=== PATIENT | male | born 1960 | race Caucasian/White ===

== ENCOUNTER → 2018-12-25 | Outpatient (CLI) | payer OTHER ==
[~2018-12-25] MED LIST: ALBU90OI6 INH; AMIT25 PO; ASPI81CH PO; ASPI81EC PO; Aspir 8181 MG PO; CLOM50A PO; ENAL2.5 PO; HYDMOR2 PO; HYDR1TAB94 PO; Humalog100 UNIT/1; INSLI100I SC; INSULANI SC; INSULANPEN; KETO10 PO; LOVA20 PO; LOVA40 PO; Lantus100 UNIT/1 SC; METF500 PO; Naprosyn500 MG PO; OXYC10ER PO; OXYC10TA19; Prednisone20 MG PO; SILD25T PO; SILD50TA PO; WARF5; Zithromax250 MG PO
== END | disposition home or self-care (01) ==
LOC: LAB SHORT 10:03 → LAB EV 10:03
DX: J02.9 Acute pharyngitis, unspecified (principal)
CPT/HCPCS: 87081

== ENCOUNTER 2021-10-18 09:51 | Inpatient (IN) | payer OTHER ==
[~2021-10-18] VITALS: Ht 177.8 cm; Wt 98.3 kg
[~2021-10-18 09:51] MED LIST changes: +HUMALOG100 UNIT/1 SC; -INSLI100I SC
[2021-10-18 10:29] LABS: BASOPHILS ABSOLUTE AUTO 0.06 K/mm3 (0.00-0.23); BASOPHILS PERCENT AUTO 1 % (0-2); EOSINOPHILS ABSOLUTE AUTO 0.22 K/mm3 (0.00-0.68); EOSINOPHILS PERCENT AUTO 3 % (0-6); Hematocrit 42.6 % (37.0-53.0); Hemoglobin 13.9 g/dL (13.5-17.5); IMMATURE GRAN ABSOLUTE AUTO 0.01 K/mm3 (0.00-0.10); IMMATURE GRAN PERCENT AUTO 0 % (0-1); LYMPHOCYTES ABSOLUTE AUTO 0.86 K/mm3 (0.84-5.20); LYMPHOCYTES PERCENT AUTO 13 % (21-46); MONOCYTES ABSOLUTE AUTO 0.46 K/mm3 (0.16-1.47); MONOCYTES PERCENT AUTO 7 % (4-13); Mean Corpuscular HGB 28.7 pg (26.0-34.0); Mean Corpuscular HGB Conc 32.6 g/dL (31.5-36.5); Mean Corpuscular Volume 88 fL (80-100); Mean Platelet Volume 10.6 fL (9.1-12.4); NEUTROPHILS ABSOLUTE AUTO 4.91 K/mm3 (1.96-9.15); NEUTROPHILS PERCENT AUTO 75 % (41-73); Platelet Count 219 K/mm3 (150-400); RDW Standard Deviation 42.4 fL (35.1-46.3); Red Blood Cell Count 4.84 M/mm3 (4.30-5.90); White Blood Cell Count 6.52 K/mm3 (4.00-11.30)
[2021-10-18 10:39] LABS: Alanine Aminotransfer (ALT/SGP 43 U/L (12-78); Albumin, Blood 3.7 g/dL (3.4-5.0); Albumin/Globulin Ratio 1.1 (0.8-1.8); Alk Phos 79 U/L (50-136); Anion Gap 5 mmol/L (6-16); Aspartate Aminotrans (AST/SGOT 31 U/L (12-37); Blood Urea Nitrogen 17 mg/dL (8-24); CO2, Blood 28 mmol/L (21-32); Calcium, Blood 8.5 mg/dL (8.5-10.1); Chloride, Blood 107 mmol/L (98-108); Creatinine, Blood 0.81 mg/dL (0.60-1.20); Globulin, Blood 3.3 g/dL (2.2-4.0); Glomerular Filtration Rate >60 (60-); Glucose, Blood 126 mg/dL (70-99); Potassium, Blood 4.1 mmol/L (3.5-5.5); Sodium, Blood 140 mmol/L (136-145)
[2021-10-18 11:17] LABS: Influenza A, PCR NEGATIVE (NEGATIVE); Influenza B, PCR NEGATIVE (NEGATIVE); Resp Syncytial Virus, PCR NEGATIVE (NEGATIVE); SARS-Cov-2 (COVID-19) PCR, MMC NEGATIVE (NEGATIVE)
--- NOTE | 2021-10-18 15:23 | NUR ---
PT INSULIN DOSE VERIFIED WITH PT. PT REPORTED HE TAKES LANTUS 25 UNITS AT BEDTIME AND TAKES SHORT ACTING INSULIN 3-6 UNITS WITH MEALS DEPENDING ON WHAT HE EATS. PT REPORTS HE DOES NOT USE A SCALE. PT ALSO REPORTED HE HAS BEEN WAKING AT 1 AM IN THE NIGHT DUE TO LOW BLOOD SUGARS WITH RESULTS IN THE 50'S. DR. SRIVASTAVA NOTIFIED OF PT HOME INSULIN DOSE AND REPORTED LOW BLOOD SUGARS. DR. SRIVASTAVA GAVE ORDER TO CHANGE GLARGINE DOSE TO 10 UNITS AT BEDTIME.
--- NOTE | 2021-10-18 17:49 | NUR ---
SHIFT SUMMARY: PT TRANSFERRED FROM MEDICAL FLOOR. HE HAS BEEN EXPERIENCING CP AND SOB FOR THE LAST 6 MONTHS AND RECEIVED A NEW DX OF CHF TODAY. EF IS 25-30%. THE PT NOTES THAT HE HAS NOTICED SOME INCREASED SWELLING IN HIS ANKLES RECENTLY. PT IS INDEPENDENT IN THE ROOM. HE IS ON TELE AT NSR. IV IN LT AC. PT IS ALERT AND ORIENTED X4. BED IN LOW POSITION. CALL LIGHT IN REACH. WILL REPORT TO NIGHT NURSE.
--- NOTE | 2021-10-18 18:10 | NUR ---
TELE CALLED AND REPORTED PT HAD RUN OF VTACH 12 BEATS. ON ASSESSMENT PT REPORTS MILD CP MIDSTERNUM HE HAS HAD ALL DAY, DESCRIBED DULL ACHE THAT DOES NOT RADIATE. PT REPORTS THE CP HAS BEEN BETTER THAN WHAT IT WAS WHEN HE ARRIVED THIS AM. PT HAD JUST FINISHED EATING 100% OF DINNER AND HAD VISITOR IN ROOM. NO S/S OF DISTRESS, NO SOB. VITALS 137/84, HR 74, T 97.5, RR 16, O2 SATS 97% ON RA. NOTIFIED DR. SRIVASTAVA VIA CELL. LEFT DETAILED MESSAGE. AWAITING RETURN CALL.
--- NOTE | 2021-10-19 04:32 | NUR ---
SHIFT SUMMARY ADMITTED FOR CHF, NEW DIAGNOSIS. FULL CODE. PLAN IS TO MONITOR CARDIAC LABS AND TRENDS. INDEPENDENT IN ROOM, A&O X4. NPO SINCE MIDNIGHT. AC CHEMSTICKS. ADA/2 G LOW NA+ DIET.
[2021-10-19 05:38] LABS: Anion Gap 7 mmol/L (6-16); Blood Urea Nitrogen 14 mg/dL (8-24); Bun/Creatinine Ratio 16.8 (12.0-20.0); CHOL/HDL RATIO 2.6; CO2, Blood 26 mmol/L (21-32); Calcium, Blood 8.3 mg/dL (8.5-10.1); Chloride, Blood 109 mmol/L (98-108); Cholesterol 132 mg/dL (50-200); Creatinine, Blood 0.83 mg/dL (0.60-1.20); Glomerular Filtration Rate >60 (60-); Glucose, Blood 61 mg/dL (70-99); HDL Cholesterol 50 mg/dL (>39); LDL/HDL RATIO 1.5; Low Density Lipoprotein Chol 73 mg/dL (0-110); Magnesium, Blood 2.1 mg/dL (1.6-2.4); Potassium, Blood 3.8 mmol/L (3.5-5.5); Sodium, Blood 142 mmol/L (136-145); Triglycerides 45 mg/dL (30-160); Very Low Density Lipoprot Chol 9 mg/dL (6-32)
[2021-10-19 09:48] LABS: Hematocrit 43.4 % (37.0-53.0); Hemoglobin 14.1 g/dL (13.5-17.5); Mean Platelet Volume 10.2 fL (9.1-12.4); Platelet Count 204 K/mm3 (150-400)
[2021-10-19 10:03] LABS: Anti-Xa UFH, PHA Monitoring <0.10 IU/mL; International Normalized Ratio 1.04; Prothrombin Time Results 10.9 Sec (9.7-11.5)
--- NOTE | 2021-10-19 15:13 | NUR ---
TO ROOM WORKER. PT TO ROOM WORKER VIA W/C.
--- NOTE | 2021-10-19 16:54 | NUR ---
Update Pt arrived from [facility] after being on medical floor earlier today. He had an angio with right radial access with no stents. Dr Sheffield is at the bedside discussing the plan and he will need further intervention at a higher level of care. Per Dr Sheffield the pt will stay another night for monitoring and then they will work on the plan more tomorrow. The pt remains on room air with no SOB and sats in the high 90's. He is in NSR @ 67 and denies chest pain. He has the right radial site with TR band in place. Heparin is DCD per Dr Sheffield and he can eat a heart healthy diet. The is at the bedside and she has been updated. He is able to make his needs known and has his call light in reach.
[2021-10-20 04:12] LABS: BASOPHILS ABSOLUTE AUTO 0.08 K/mm3 (0.00-0.23); BASOPHILS PERCENT AUTO 1 % (0-2); EOSINOPHILS ABSOLUTE AUTO 0.24 K/mm3 (0.00-0.68); EOSINOPHILS PERCENT AUTO 4 % (0-6); Hematocrit 40.5 % (37.0-53.0); Hemoglobin 13.3 g/dL (13.5-17.5); IMMATURE GRAN ABSOLUTE AUTO 0.01 K/mm3 (0.00-0.10); IMMATURE GRAN PERCENT AUTO 0 % (0-1); LYMPHOCYTES ABSOLUTE AUTO 1.57 K/mm3 (0.84-5.20); LYMPHOCYTES PERCENT AUTO 25 % (21-46); MONOCYTES ABSOLUTE AUTO 0.62 K/mm3 (0.16-1.47); MONOCYTES PERCENT AUTO 10 % (4-13); Mean Corpuscular HGB 28.9 pg (26.0-34.0); Mean Corpuscular HGB Conc 32.8 g/dL (31.5-36.5); Mean Corpuscular Volume 88 fL (80-100); Mean Platelet Volume 10.6 fL (9.1-12.4); NEUTROPHILS ABSOLUTE AUTO 3.79 K/mm3 (1.96-9.15); NEUTROPHILS PERCENT AUTO 60 % (41-73); Platelet Count 189 K/mm3 (150-400); RDW Coefficient Variation 12.7 % (11.7-14.2); RDW Standard Deviation 41.4 fL (35.1-46.3); Red Blood Cell Count 4.61 M/mm3 (4.30-5.90); White Blood Cell Count 6.31 K/mm3 (4.00-11.30)
[2021-10-20 04:32] LABS: Anion Gap 5 mmol/L (6-16); Blood Urea Nitrogen 22 mg/dL (8-24); Bun/Creatinine Ratio 27.8 (12.0-20.0); CO2, Blood 27 mmol/L (21-32); Calcium, Blood 8.5 mg/dL (8.5-10.1); Chloride, Blood 105 mmol/L (98-108); Creatinine, Blood 0.79 mg/dL (0.60-1.20); Glomerular Filtration Rate >60 (60-); Glucose, Blood 229 mg/dL (70-99); Potassium, Blood 4.1 mmol/L (3.5-5.5); Sodium, Blood 137 mmol/L (136-145)
--- NOTE | 2021-10-20 06:26 | NUR ---
SHIFT SUMMARY Assumed care of pt at 1900. A/Ox4, independent in room. No reports of pain, CP/pressure. He reports being slightly sore midsternum but reports it not to be really painful. No SOB. NSR on monitor avg 70's. 95% on RA. LS clear on top and exp wheeze at bases bl. Reports small chronic cough producing minimal amounts of clear/white sputum. BLE 1+ pitting edema. TR band removed 0130, no complications/hematoma/redness to site. Will report to [facility].
[2021-10-20] MEDS ORDERED: ACET325 PO (12:27)
[2021-10-20] MEDS ORDERED: FURO40 PO (12:29)
[2021-10-20] MEDS ORDERED: METO25ER PO (12:31)
[2021-10-20] MEDS ORDERED: LOSA25 PO (12:31)
[2021-10-20] MEDS ORDERED: NITR.4SL SL (12:34)
--- NOTE | 2021-10-20 12:50 | NUR ---
PT DISCHARGED HOME WITH ALL BELONGINGS. DISCHARGE TEACHING REVIEWED INCLUDING MEDICATION LIST, FOLLOW UP APPOINTMENTS, RADIAL SITE CARE AND EDUCATION MATERIAL. PT VERBALIZES UNDERSTANDING, NO QUESTIONS OR CONCERNS AT THIS TIME. IV REMOVED WNL, CATHETER INTACT. PT'S WILL BE DRIVING HIM HOME.
== END 2021-10-20 13:20 | disposition home or self-care (01) | DRG 286 ==
LOC: ER 09:51 → MEDS 09:52 → PCU 10-19 16:04
PROVIDERS: Emergency Medicine; Nurse Practitioner Acute Care; ADMIT Internal Medicine
PROC: 4A023N8 Measurement of Cardiac Sampling and Pressure, Bilateral, Percutaneous Approach (ICD-10-PCS; principal; 2021-10-19)
PROC: B2111ZZ Fluoroscopy of Multiple Coronary Arteries using Low Osmolar Contrast (ICD-10-PCS; 2021-10-19)
DX: I11.0 Hypertensive heart disease with heart failure (principal); I50.21 Acute systolic (congestive) heart failure; I47.2 Ventricular tachycardia; I42.9 Cardiomyopathy, unspecified; I25.10 Atherosclerotic heart disease of native coronary artery without angina pectoris; I45.81 Long QT syndrome; E11.40 Type 2 diabetes mellitus with diabetic neuropathy, unspecified; Z96.651 Presence of right artificial knee joint; Z20.822 Contact with and (suspected) exposure to COVID-19; E78.5 Hyperlipidemia, unspecified; R06.00 Dyspnea, unspecified; R07.9 Chest pain, unspecified; E66.01 Morbid (severe) obesity due to excess calories; Z79.4 Long term (current) use of insulin; Z88.8 Allergy status to other drugs, medicaments and biological substances; Z79.899 Other long term (current) drug therapy; Z82.49 Family history of ischemic heart disease and other diseases of the circulatory system; Z83.3 Family history of diabetes mellitus; I27.20 Pulmonary hypertension, unspecified; Z68.32 Body mass index [BMI] 32.0-32.9, adult
CPT/HCPCS: 0241U; 36415; 36416; 71046; 76937; 80048; 80053; 80061; 82947; 83036; 83735; 83880; 84484; 85014; 85018; 85025; 85049; 85520; 85610; 85730; 93005; 93010; 93306; 93454; 93971; 96374; 96375; 96376; 98960; 99152; 99153; 99285-25; A9270; C1769; C1887; C1894; G0378; J1644; J1815; J1940; J2250; J2405; J3010; J7030; Q9967

== ENCOUNTER 2023-07-18 07:59 | Day surgery (SDC) | payer OTHER ==
[~2023-07-18] VITALS: Ht 177.8 cm; Wt 102.1 kg
[2023-07-18] VITALS (14 sets, daily range): BP systolic 133–168; BP diastolic 73–91
[~2023-07-18 07:59] MED LIST changes: +ACET325 PO; +FURO40 PO; +JARDIANCE10 MG PO; +LOSA25 PO; +Lovastatin10 MG PO; +METO25ER PO; +NITR.4SL SL
--- NOTE | 2023-07-18 09:11 | NUR ---
Ambulatory in Day Surgery History, Chart, Medications and Allergies reviewed before start of procedure.Patient confirms NPO status and agrees with scheduled surgery. Pre-Op teaching done. Pt verbalizes understanding. Patient States Post-Procedure ride home has been arranged.
--- NOTE | 2023-07-18 09:28 | NUR ---
07/18/23 0928 Deedee Hogan HISTORY, CHART, MEDICATIONS AND ALLERGIES REVIEWED BEFORE START OF PROCEDURE. PATIENT CONFIRMS NPO STATUS AND AGREES WITH SCHEDULED PROCEDURE. 3-LEAD EKG REVIEWED WITH PHYSICIAN PRIOR TO START OF PROCEDURE. MONITOR INTACT WITH CONTINUOUS PULSE OXIMETRY,CAPNOGRAPHY, 3-LEAD EKG, INTERMITTENT BP. SUPPLEMENTAL O2 TO BE TITRATED THROUGHOUT PROCEDURE TO MAINTAIN O2 SATURATION ABOVE 90%. PATIENT DETERMINED TO BE ASA APPROPRIATE FOR PROPOFOL SEDATION PRIOR TO START OF PROCEDURE BY DR. QUICK.
--- NOTE | 2023-07-18 10:22 | NUR ---
DISCHARGE NOTE Patient up to Ambulate independently. Gait steady. Discharge instructions reviewed with patient. Patient verbalizes understanding. Copy given to patient to take home. Discharged via wheelchair to private car for ride home.
== END 2023-07-18 23:23 | disposition home or self-care (01) ==
LOC: ORSCMMR 07:59 → ORD 09:00 → ORSCMMR 09:00
PROVIDERS: Internal Medicine Gastroenterology
PROC: 0DJD8ZZ Inspection of Lower Intestinal Tract, Via Natural or Artificial Opening Endoscopic (ICD-10-PCS; principal; 2023-07-18 09:00)
DX: Z12.11 Encounter for screening for malignant neoplasm of colon (principal); G47.30 Sleep apnea, unspecified; I25.10 Atherosclerotic heart disease of native coronary artery without angina pectoris; E11.9 Type 2 diabetes mellitus without complications; Z79.85 Long-term (current) use of injectable non-insulin antidiabetic drugs; Z79.4 Long term (current) use of insulin; Z79.84 Long term (current) use of oral hypoglycemic drugs; Z79.899 Other long term (current) drug therapy
CPT/HCPCS: 82947; J2704; J7120

== ENCOUNTER 2025-04-22 06:22 | Day surgery (SDC) | payer MEDICARE ==
[2025-04-22] VITALS (12 sets, daily range): BP systolic 112–143; BP diastolic 73–91
[~2025-04-22] VITALS: Ht 177.8 cm; Wt 101.0 kg
[~2025-04-22 06:22] MED LIST changes: +ATOR40TA PO; +FAMO40 PO
[2025-04-22] MEDS ORDERED: Verapamil HCL 2.5 MG/ML 2ML Injection ONE (06:49)
[2025-04-22] MEDS ORDERED: NS 250 ML IV ONE (06:49)
[2025-04-22] MEDS ORDERED: Heparin Sodium 1000 Units/ML 10ML MDV ONE (06:49)
[2025-04-22] MEDS ORDERED: NS 1,000 ML IV ONE ×2 (06:49→06:58)
[2025-04-22] MEDS ORDERED: Nitroglycerin 2 MG/20 ML BTL ONE (06:49)
[2025-04-22] MEDS ORDERED: FentaNYL Citrate 50 MCG/ML 2 ML Injection ONE (06:58)
[2025-04-22] MEDS ORDERED: Midazolam HCl 1MG / ML 2ML Vial ONE (06:58)
--- NOTE | 2025-04-22 09:14 | NUR ---
PT BACK TO RECOVERY ROOM. LAYING FLAT. PT FOLLOWING INSTRUCTIONS WELL. PT KEEPING LEGS AND HEAD DOWN. R GROIN SITE IS SOFE AND NON TENDER, DRESSING C/D/I. PT SPOUSE AT BEDSIDE. NEW MEDICATION FAXED TO PHARMACY.
--- NOTE | 2025-04-22 10:19 | NUR ---
PT LAYING FLAT, DENIES NEEDS. VSS, R GROIN SITE, SOFT, NON TENDER, NO HEMATOMA NOTED.
[2025-04-22] MEDS ORDERED: Isosorbide Mono30 MG PO (10:26)
--- NOTE | 2025-04-22 10:57 | NUR ---
PT C/O LOWER BACK PAIN, PT REPOSTIONED FOR COMFORT. REFUSED SIPS OF COFFEE AND WATER AT THIS TIME. VISITING WITH FAMILY
--- NOTE | 2025-04-22 13:04 | NUR ---
CARE OF PATIENT ASSUMED AT 1200. PATIENT IN BED WITH HOB AT 30 DEGREES. RIGHT GROIN SITE WNL, SOFT, NON-TENDER, NO HEMATOMA, OR BLEEDING. PULSES AT BASELINE. VSS. PATIENT DENIES COMPLAINTS. PT TOLERATING FLUIDS. PATIENT OOB TO CHAIR AT 1230, SITE STABLE W/O CHANGES. VERBAL AND WRITTEN DISCHARGE INSTRUCTIONS GIVEN TO PATIENT AND PT'S WITH CLEAR UNDERSTANDING. PATIENT DRESSED AT 1245. SITE STABLE W/O CHANGES. PATIENT DC'D HOME IN STABLE CONDITION AT 1245. NEW RX FAXED TO [facility] [address] PER PT REQUEST. PT ESCORTED OUT VIA WHEELCHAIR. PATIENTS DRIVING HIM HOME.
== END 2025-04-22 23:00 | disposition home or self-care (01) ==
LOC: MHTC 06:22
DX: I25.10 Atherosclerotic heart disease of native coronary artery without angina pectoris (principal); E11.9 Type 2 diabetes mellitus without complications; I11.0 Hypertensive heart disease with heart failure; I50.22 Chronic systolic (congestive) heart failure; Z79.82 Long term (current) use of aspirin; Z79.4 Long term (current) use of insulin; Z79.84 Long term (current) use of oral hypoglycemic drugs; Z79.899 Other long term (current) drug therapy; Z88.8 Allergy status to other drugs, medicaments and biological substances; Z95.1 Presence of aortocoronary bypass graft
CPT/HCPCS: 76937; 82947; 93459; 99152; 99153; C1760; C1769; C1887; C1894; J1644; J2250; J3010; J7030; J7050; Q9967